=== PATIENT | male | born 1985 | race Caucasian/White ===

== ENCOUNTER 2017-06-14 08:01 | Emergency (ER) | payer OTHER ==
[~2017-06-14] VITALS: Ht 175.3 cm; Wt 70.0 kg
[2017-06-14 11:11] VITALS: BP 120/76
== END 2017-06-14 11:32 | disposition home or self-care (01) ==
LOC: ED 09:03
DX: S60.00XA Contusion of unspecified finger without damage to nail, initial encounter (principal); W19.XXXA Unspecified fall, initial encounter; Y93.55 Activity, bike riding; Y99.8 Other external cause status; Y92.488 Other paved roadways as the place of occurrence of the external cause
CPT/HCPCS: 29125; 99284